=== PATIENT | male | born 1940 | race Caucasian/White ===

== ENCOUNTER 2019-06-14 11:28 | Emergency (ER) | payer MEDICARE, OTHER ==
[2019-06-14] MEDS ORDERED: Sodium Chloride 0.9% 10 ML Syringe FLUSH PRN (11:47)
[2019-06-14] MEDS ORDERED: Aspirin 81 MG Tab.Chew PO ONE (11:47)
--- NOTE | 2019-06-14 11:53 | EDM.PDOC ---
ED HPI GENERAL MEDICAL PROBLEM - General Chief Complaint: Chest Pain Stated Complaint: CHEST PAIN Time Seen by Provider: 06/14/19 11:38 Source of Information: Reports: Patient History Limitations: Reports: No Limitations - History of Present Illness INITIAL COMMENTS - FREE TEXT/NARRATIVE: Carlos is a 78 year old male who presents for evaluation and treatment of chest pain. He states that the chest pain started yesterday. He was not doing any exertional activity on the chest pain started. Primarily located on the left side of his chest. Describes it as a dull pressure. Currently the pain is a 2 or 3 out of 10. He reports he did experience some pain into his left arm last night. At this time he has pain on both the left lateral chest and the right anterior chest. No radiation into his neck or back. He denies any associated shortness of breath, lightheadedness, dizziness, syncope, nausea, vomiting or abdominal pain. He did take an 81 mg aspirin this morning. No history of any diabetes. No history of any tobacco use. Reports that he has had several stress test. Last was a couple years ago. He did have a coronary angiogram in the because his provider did not think he would tolerate a stress test. He states that he has never had any interventions such as stents or bypass. No history of any previous MIs or arrhythmias. No lipitor for cholesterol. No history of hypertension. Bilateral Chest Pain Score (Numeric/FACES): 3 - Related Data Allergies Allergy/AdvReac Type Severity Reaction Status Date / Time codeine Allergy Rash Verified 06/14/19 11:45 Home Meds: Home Meds Levothyroxine 112 mcg PO DAILY 06/14/19 [History] atorvaSTATin [Lipitor] 40 mg PO DAILY 06/14/19 [History] Past Medical History Cardiovascular History: Reports: High Cholesterol, Other (See Below) Other Cardiovascular History: stress test Musculoskeletal History: Reports: RA, Other (See Below) Other Musculoskeletal History: carpal tunnel - Past Surgical History Musculoskeletal Surgical History: Reports: Arthroscopic Knee ED ROS GENERAL - Review of Systems Review Of Systems: See Below Respiratory: Denies: Shortness of Breath Cardiovascular: Reports: Chest Pain. Denies: Lightheadedness, Syncope GI/Abdominal: Denies: Abdominal Pain, Nausea, Vomiting ED EXAM, GENERAL - Physical Exam Exam: See Below Exam Limited By: No Limitations General Appearance: Alert, WD/WN, No Apparent Distress Respiratory/Chest: No Respiratory Distress, Lungs Clear, Normal Breath Sounds, Chest Non-Tender Cardiovascular: Normal Peripheral Pulses, Regular Rate, Rhythm, No Murmur GI/Abdominal: Normal Bowel Sounds, Soft, Non-Tender Extremities: Normal Inspection Neurological: Alert, Oriented, Normal Cognition Psychiatric: Normal Affect, Normal Mood Skin Exam: Warm, Dry, Normal Color EKG INTERPRETATION EKG Date: 06/14/19 Time: 11:38 Rhythm: NSR Rate (Beats/Min): 70 Corn[place]: Normal P-Wave: Present QRS: Normal ST-T: Normal QT: Normal EKG Interpretation Comments: NSR at [address] segment changes. Reviewed by myself and Dr. Gutierrez. Course - Vital Signs Last Recorded V/S: Last Vital Signs Temp 97.9 F 06/14/19 11:35 Pulse 68 06/14/19 11:35 Resp 18 06/14/19 11:35 BP 169/92 H 06/14/19 11:35 Pulse Ox 96 06/14/19 11:35 - Orders/Labs/Meds Orders: Active Orders 24 hr Category Date Time Status Cardiac Monitoring [RC] . DIRECTED Care 06/14/19 11:47 Active EKG 12 Lead [EKG Documentation Completion] [RC] STAT Care 06/14/19 12:01 Active Peripheral IV Care [RC] . DIRECTED Care 06/14/19 11:47 Active Peripheral IV Insertion Adult [OM.PC] Routine Oth 06/14/19 11:46 Ordered Labs: Laboratory Tests 06/14/19 06/14/19 06/14/19 Range/Units 11:45 11:45 11:45 WBC 5.72 (4.23-9.07) K/mm3 RBC 5.29 (4.63-6.08) M/mm3 Hgb 15.8 (13.7-17.5) gm/dl Hct 45.9 (40.1-51.0) % MCV 86.8 (79.0-92.2) fl MCH 29.9 (25.7-32.2) pg MCHC 34.4 (32.2-35.5) g/dl RDW Std Deviation 39.5 (35.1-43.9) fL Plt Count 236 (163-337) K/mm3 MPV 9.5 (9.4-12.3) fl Neut % (Auto) 60.8 (34.0-67.9) % Lymph % (Auto) 26.6 (21.8-53.1) % [place] % (Auto) 9.6 (5.3-12.2) % Eos % (Auto) 2.1 (0.8-7.0) Baso % (Auto) 0.7 (0.1-1.2) % Neut # (Auto) 3.48 (1.78-5.38) K/mm3 Lymph # (Auto) 1.52 (1.32-3.57) K/mm3 [place] # (Auto) 0.55 (0.30-0.82) K/mm3 Eos # (Auto) 0.12 (0.04-0.54) K/mm3 Baso # (Auto) 0.04 (0.01-0.08) K/mm3 PT 10.1 (9.7-12.0) SECONDS INR < 0.93 APTT 24 (22-31) SECONDS Sodium 140 (136-145) mEq/L Potassium 4.2 (3.5-5.1) mEq/L Chloride 101 (98-107) mEq/L Carbon Dioxide 28 (21-32) mEq/L Anion Gap 15.2 H (5-15) BUN 20 H (7-18) mg/dL Creatinine 1.1 (0.7-1.3) mg/dL Est Cr Clr Drug Dosing 53.41 mL/min Estimated GFR (MDRD) > 60 (>60) mL/min BUN/Creatinine Ratio 18.2 H (14-18) Glucose 90 (83-115) mg/dL Calcium 9.5 (8.5-10.1) mg/dL Total Bilirubin 0.5 (0.2-1.0) mg/dL AST 20 (15-37) U/L ALT 30 (16-63) U/L Alkaline Phosphatase 67 (46-116) U/L CK-MB (CK-2) 2.2 (0-3.6) ng/ml Troponin I < 0.017 (0.00-0.056) ng/mL Total Protein 7.3 (6.4-8.2) g/dl Albumin 4.0 (3.4-5.0) g/dl Globulin 3.3 gm/dL Albumin/Globulin Ratio 1.2 (1-2) Lipase 144 (73-393) U/L 06/14/19 Range/Units 14:30 WBC (4.23-9.07) K/mm3 RBC (4.63-6.08) M/mm3 Hgb (13.7-17.5) gm/dl Hct (40.1-51.0) % MCV (79.0-92.2) fl MCH (25.7-32.2) pg MCHC (32.2-35.5) g/dl RDW Std Deviation (35.1-43.9) fL Plt Count (163-337) K/mm3 MPV (9.4-12.3) fl Neut % (Auto) (34.0-67.9) % Lymph % (Auto) (21.8-53.1) % [place] % (Auto) (5.3-12.2) % Eos % (Auto) (0.8-7.0) Baso % (Auto) (0.1-1.2) % Neut # (Auto) (1.78-5.38) K/mm3 Lymph # (Auto) (1.32-3.57) K/mm3 [place] # (Auto) (0.30-0.82) K/mm3 Eos # (Auto) (0.04-0.54) K/mm3 Baso # (Auto) (0.01-0.08) K/mm3 PT (9.7-12.0) SECONDS INR APTT (22-31) SECONDS Sodium (136-145) mEq/L Potassium (3.5-5.1) mEq/L Chloride (98-107) mEq/L Carbon Dioxide (21-32) mEq/L Anion Gap (5-15) BUN (7-18) mg/dL Creatinine (0.7-1.3) mg/dL Est Cr Clr Drug Dosing mL/min Estimated GFR (MDRD) (>60) mL/min BUN/Creatinine Ratio (14-18) Glucose (83-115) mg/dL Calcium (8.5-10.1) mg/dL Total Bilirubin (0.2-1.0) mg/dL AST (15-37) U/L ALT (16-63) U/L Alkaline Phosphatase (46-116) U/L CK-MB (CK-2) (0-3.6) ng/ml Troponin I < 0.017 (0.00-0.056) ng/mL Total Protein (6.4-8.2) g/dl Albumin (3.4-5.0) g/dl Globulin gm/dL Albumin/Globulin Ratio (1-2) Lipase (73-393) U/L Meds: Medications Discontinued Medications Generic Name Dose Route Start Last Admin Trade Name Andrewq PRN Reason Stop Dose Admin Aspirin 324 mg 06/14/19 11:47 06/14/19 11:55 Aspirin PO 06/14/19 11:48 324 mg ONETIME ONE Administration Sodium Chloride 10 ml 06/14/19 11:47 06/14/19 11:55 Saline Flush FLUSH 10 ml ASDIRECTED PRN Administration Keep Vein Open - Radiology Interpretation Free Text/Narrative:: Chest: 2 views of the chest were obtained. Comparison: Previous chest x-ray 06/15/17. Heart size and mediastinum are normal. Equivocal nodule overlying the left heart is seen. This is not appreciated on prior exam. This may relate to overlapping lung markings but noncontrast chest CT recommended to completely exclude parenchymal mass. Lungs otherwise are clear. Degenerative change is noted within the right shoulder. Impression: 1. Possible nodule overlying the left heart margin. Noncontrast chest CT is recommended to further evaluate. 2. Nothing acute is otherwise seen on 2 view chest x-ray. Diagnostic code #9 This report was dictated in [place] Standard Time - Re-Assessments/Exams Free Text/Narrative Re-Assessment/Exam: 06/14/19 14:11 I checked on the patient. I reviewed his EKG, labs and chest x-ray with him. Informed him of the nodule on his chest x-ray that he will need a noncontrast chest CT done emergently to further evaluate this. He continues to have very minimal discomfort and declined anything for pain. We will repeat his troponin is negative I will plan to send him home with close follow-up with his primary. 06/14/19 15:19 I checked on the patient. Resting comfortably. No acute distress. Repeat trop is negative at <0.017. I will have him follow-up with his PCP for the nodule on his chest xray and chest pain follow-up. He may need a stress test. Departure - Departure Time of Disposition: 15:24 Disposition: Home, Self-Care 01 Condition: Good Clinical Impression: Lung nodule, Chest wall pain Instructions: Chest Wall Pain, [id number], Pulmonary Nodule, [id number] Referrals: Donna Burden PA-C [Primary Care Provider] - Forms: ED Department Discharge Additional Instructions: May take OTC tylenol, motrin or Aleve for discomfort. May also try heat. Follow-up with your PCP this week for a recheck of your symptoms please return to the ER should your symptoms change or worsen. Sepsis Event Note - Evaluation Sepsis Screening Result: No Definite Risk - Focused Exam Vital Signs: Vital Signs Temp Pulse Resp BP Pulse Ox 06/14/19 11:35 97.9 F 68 18 169/92 H 96 Date Exam was Performed: 06/14/19 Time Exam was Performed: 19:25 - My Orders Last 24 Hours: My Active Orders 06/14/19 11:46 Peripheral IV Insertion Adult [OM.PC] Routine 06/14/19 11:47 Cardiac Monitoring [RC] . DIRECTED Peripheral IV Care [RC] . DIRECTED 06/14/19 12:01 EKG 12 Lead [EKG Documentation Completion] [RC] STAT - Assessment/Plan Last 24 Hours: My Active Orders 06/14/19 11:46 Peripheral IV Insertion Adult [OM.PC] Routine 06/14/19 11:47 Cardiac Monitoring [RC] . DIRECTED Peripheral IV Care [RC] . DIRECTED 06/14/19 12:01 EKG 12 Lead [EKG Documentation Completion] [RC] STAT
--- NOTE | 2019-06-14 12:39 | CR ---
Chest: 2 views of the chest were obtained. Comparison: Previous chest x-ray 06/15/17. Heart size and mediastinum are normal. Equivocal nodule overlying the left heart is seen. This is not appreciated on prior exam. This may relate to overlapping lung markings but noncontrast chest CT recommended to completely exclude parenchymal mass. Lungs otherwise are clear. Degenerative change is noted within the right shoulder. Impression: 1. Possible nodule overlying the left heart margin. Noncontrast chest CT is recommended to further evaluate. 2. Nothing acute is otherwise seen on 2 view chest x-ray. Diagnostic code #9 This report was dictated in [place] Standard Time
== END 2019-06-14 15:42 | disposition home or self-care (01) ==
LOC: JD.ED 11:28
DX: R91.1 Solitary pulmonary nodule (principal); R07.89 Other chest pain; M06.9 Rheumatoid arthritis, unspecified; Z88.5 Allergy status to narcotic agent; Z79.899 Other long term (current) drug therapy
CPT/HCPCS: 36415; 71046; 80053; 82553; 83690; 84484; 85025; 85610; 85730; 93005; 99285; A9270; 93010; 99284

== ENCOUNTER 2019-07-07 06:20 | Day surgery (SDC) | payer MEDICARE, OTHER ==
[~2019-07-07 06:20] MED LIST: Lactated Ringers 1,000 ML IV SCH; Lidocaine 1%/Sod Bicarbonate in NS 8.4% 1 ML Syringe IDERM PRN; Sodium Chloride 0.9% 10 ML Syringe FLUSH PRN
[2019-07-07] MEDS ORDERED: Bupivacaine 0.25% 10 ML SDV ONE (06:29)
[2019-07-07] MEDS ORDERED: Lidocaine 1% 50 ML MDV ONE (06:29)
--- NOTE | 2019-07-07 06:38 | PCM.PREANE ---
Preanesthetic Assessment - Procedure Proposed Procedure: Left wrist carpal tunnel release - Anesthesia/Transfusion/Family Hx Anesthesia History: Prior Anesthesia Without Reaction Family History of Anesthesia Reaction: No Transfusion History: No Prior Transfusion(s) - Review of Systems General: No Symptoms Pulmonary: No Symptoms Cardiovascular: No Symptoms Gastrointestinal: No Symptoms Neurological: Numbness (left hand) Other: Reports: Easy Bruising, Thyroid Problems - Physical Assessment NPO Status Date: 07/06/19 NPO Status Time: 00:00 Height: 1.68 m Weight: 93.5 kg ASA Class: 2 Mental Status: Alert & Oriented x3 Airway Class: Mallampati = 1 Dentition: Reports: [place](s) Thyro-Mental Finger Breadths: 3 Mouth Opening Finger Breadths: 3 ROM/Head Extension: Full Lungs: Clear to Auscultation, Normal Respiratory Effort Cardiovascular: Regular Rate, Regular Rhythm - Lab Values: Laboratory Last Values MRSA (PCR) Negative 06/24/19 10:35 - Allergies Allergies/Adverse Reactions: Allergies Allergy/AdvReac Type Severity Reaction Status Date / Time codeine Allergy Rash Verified 07/06/19 10:22 - Blood Blood Available: No Product(s) Available: None - Anesthesia Plan Pre-Op Medication Ordered: None - Acknowledgements Anesthesia Type Planned: MAC Pt an Appropriate Candidate for the Planned Anesthesia: Yes Alternatives and Risks of Anesthesia Discussed w Pt/Guardian: Yes Pt/Guardian Understands and Agrees with Anesthesia Plan: Yes PreAnesthesia Questionnaire HEENT History: Reports: Impaired Vision Cardiovascular History: Reports: Angina, High Cholesterol, Other (See Below) Other Cardiovascular History: stress test, angiogram Respiratory History: Reports: None Gastrointestinal History: Reports: None Genitourinary History: Reports: Other (See Below) Other Genitourinary History: 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 INSTRUCTOR ADJUNCT SURGICAL TECHNICIAN History: Reports: None Musculoskeletal History: Reports: RA, Other (See Below) Other Musculoskeletal History: decreased shoulder range of motion, low back pain , left thumb numbness/tingling, knee surgery Neurological History: Reports: Other (See Below) Other Neuro History: dizziness Psychiatric History: Reports: None Endocrine/Metabolic History: Reports: Hypothyroidism, Osteopenia Hematologic History: Reports: None Immunologic History: Reports: None Oncologic (Cancer) History: Reports: Prostate Dermatologic History: Reports: None - Past Surgical History Head Surgeries/Procedures: Reports: None HEENT Surgical History: Reports: Cataract Surgery Cardiovascular Surgical History: Reports: None Respiratory Surgical History: Reports: None GI Surgical History: Reports: Colonoscopy Female Surgical History: Reports: None Male Surgical History: Reports: None Endocrine Surgical History: Reports: None Neurological Surgical History: Reports: None Musculoskeletal Surgical History: Reports: Arthroscopic Knee Oncologic Surgical History: Reports: None - SUBSTANCE USE Smoking Status *Q: Former Smoker Tobacco Use Within Last Twelve Months: No Second Hand Smoke Exposure: No Days Per Week of Alcohol Use: 1 Number of Drinks Per Day: 0 Total Drinks Per Week: 0 Recreational Drug Use History: No - HOME MEDS Home Medications: Home Meds Levothyroxine 112 mcg PO DAILY 06/14/19 [History] atorvaSTATin [Lipitor] 40 mg PO DAILY 06/14/19 [History] Betamethasone Dipropionate [Diprosone 0.05% Crm] 1 dose TOP DAILY PRN 07/06/19 [ History] - CURRENT (IN HOUSE) MEDS Current Meds: Current Medications Lactated Ringer's (Ringers, Lactated) 1,000 mls @ 125 mls/hr IV ASDIRECTED JOHN Lidocaine/Sodium Bicarbonate (Buffered Lidocaine 1% In Ns 8.4%) 0.25 ml IDERM ONETIME PRN PRN Reason: Prior to IV Start Sodium Chloride (Saline Flush) 10 ml FLUSH ASDIRECTED PRN PRN Reason: Keep Vein Open Discontinued Medications Lactated Ringer's (Ringers, Lactated) 1,000 mls @ 125 mls/hr IV ASDIRECTED JOHN Stop: 06/30/19 23:00 Lidocaine/Sodium Bicarbonate (Buffered Lidocaine 1% In Ns 8.4%) 0.25 ml IDERM ONETIME PRN PRN Reason: Prior to IV Start Stop: 06/30/19 18:00 Sodium Chloride (Saline Flush) 10 ml FLUSH ASDIRECTED PRN PRN Reason: Keep Vein Open Stop: 06/30/19 18:00
[2019-07-07] MEDS ORDERED: fentaNYL 100 MCG/2 ML SDV ONE (06:45)
[2019-07-07] MEDS ORDERED: Propofol 200 MG/20 ML SDV ONE ×2 (06:45→07:21)
[2019-07-07] MEDS ORDERED: Lidocaine 1% 4 ML ONE (06:46)
[2019-07-07] MEDS ORDERED: ceFAZolin 1 GM Vial ONE (06:47)
--- NOTE | 2019-07-07 07:41 | PCM48HPAN ---
Post Anesthesia Note - EVALUATION WITHIN 48HRS OF ANESTHETIC Vital Signs in Normal Range: Yes Patient Participated in Evaluation: Yes Respiratory Function Stable: Yes Airway Patent: Yes Cardiovascular Function Stable: Yes Hydration Status Stable: Yes Pain Control Satisfactory: Yes Nausea and Vomiting Control Satisfactory: Yes Mental Status Recovered: Yes Vital Signs: Last Vital Signs Temp 36.6 C 07/07/19 06:25 Pulse 73 07/07/19 06:25 Resp 16 07/07/19 06:25 BP 158/90 H 07/07/19 06:25 Pulse Ox 97 07/07/19 06:25 - COMMENTS/OBSERVATIONS Free Text/Narrative:: no anesthesia complications noted
--- NOTE | 2019-07-07 10:49 | PCM.OPNOTE ---
- General Post-Op/Procedure Note Date of Surgery/Procedure: 07/07/19 Operative Procedure(s): left carpal tunnel release Pre Op Diagnosis: left median nerve compression neuropathy Post-Op Diagnosis: Same Anesthesia Technique: Local, MAC Primary Surgeon: Hugo Love Anesthesia Provider: Rasta Valdez Coin Machine Service Repairer: Jennifer Mcghee EBL in mLs: 5 Complications: None Condition: Good Free Text/Narrative:: Intake & Output 07/06/19 07/07/19 07/07/19 22:59 06:59 14:59 Intake Total 340 Balance 340
--- NOTE | 2019-07-07 11:22 | OR ---
DATE OF OPERATION: 07/07/2019 SURGEON: Hugo Love MD OPERATION PERFORMED: Left carpal tunnel release. PREOPERATIVE DIAGNOSIS: Left median nerve compression neuropathy. POSTOPERATIVE DIAGNOSIS: Left median nerve compression neuropathy. ANESTHESIA: Local MAC. ANESTHESIA PROVIDER: Miki Alvarado. ENGROSSER: Jennifer Mcghee PA-C ESTIMATED BLOOD LOSS: Less than 5 mL. COMPLICATIONS: None. CONDITION: Stable. DESCRIPTION OF PROCEDURE: The patient was identified in the preop holding area. Proper site was marked and identified by the surgeon. The patient was taken back to the operating theater where after adequate anesthesia, the patient's left upper extremity was sterilely prepped and draped in the usual sterile fashion. OR time-out was performed. The patient did not receive antibiotics and it is not indicated for soft tissue hand procedure. At this time, the left upper extremity was exsanguinated and an Esmarch was used as a tourniquet on the forearm. At this time, using 1% lidocaine without epinephrine and 0.25% Marcaine without epinephrine, the palmar cutaneous branch of the median nerve was anesthetized and then the incisional site was anesthetized using Cazares cardinal line and ulnar border of the fourth digit as reference. Once this had set up, an incision was made. Blunt dissection was taken down to the palmar cutaneous fascia. Palmar cutaneous fascia was incised with a Niagara blade. At this time, the transverse carpal ligament was identified. A small rent was made in the transverse carpal ligament with a [place]agara blade under direct visualization. Resection of the transverse carpal ligament was done distally using tenotomy scissors making sure to stop short of the palmar arch. At this time, attention was turned proximally after it was found to be adequately released. Using the tenotomy scissors keeping the tips ulnar to protect the palmar cutaneous branch of the median nerve, the superficial forearm fascia as well as the transverse carpal ligament were resected proximally. It was found to be adequate release both proximally and distally. At this time, adequate saline was irrigated through the wound. 4-0 nylon sutures were used closure of the skin. The patient was placed in a sterile soft dressing and sent to PACU in stable condition. MMODAL /[id number]
== END 2019-07-07 08:23 | disposition home or self-care (01) ==
LOC: JD.SDS 06:20
PROVIDERS: ATTEND Orthopaedic Surgery
DX: G56.02 Carpal tunnel syndrome, left upper limb (principal); E03.9 Hypothyroidism, unspecified; E78.00 Pure hypercholesterolemia, unspecified; E78.5 Hyperlipidemia, unspecified; M06.9 Rheumatoid arthritis, unspecified; Z88.5 Allergy status to narcotic agent; Z87.891 Personal history of nicotine dependence; Z79.899 Other long term (current) drug therapy
CPT/HCPCS: 64721; 87641; J0690; J2001; J2704; J3010; J3490; J7120; 01810